=== PATIENT | male | born 1945 | race African-American/Black ===

== ENCOUNTER 2017-03-05 10:41 | Inpatient (IN) ==
[2017-03-05 12:26] LABS: Basophils # 0.1 K/mcL (0.0-0.2); Basophils % 0.9 %; Eosinophils # 0.1 K/mcL (0.0-0.6); Eosinophils % 0.9 %; Hematocrit 45.2 % (37.5-50.1); Immature Granulocytes % 0.4 % (0-4); Lymphocytes # 2.5 K/mcL (0.6-4.6); Mean Corpuscular HGB Conc 33.2 g/dL (31.6-35.5); Mean Corpuscular Hemoglobin 30.4 pg (28.0-33.3); Mean Corpuscular Volume 91.5 fL (83.0-100.0); Mean Platelet Volume 10.3 fL (9.4-12.4); Monocytes # 0.7 K/mcL (0.0-1.3); Neutrophils # 4.6 K/mcL (1.6-8.9); Platelet Count 271 K/mcL (140-400); Red Blood Count 4.94 M/mcL (4.19-5.50); Red Cell Distribution Width 13.6 % (11.5-14.5); Segmented Neutrophils % 57.8 %
--- NOTE | 2017-03-05 12:33 | Emergency Department Note ---
Disposition Clinical Impression: Elevated troponin, Hypertensive emergency, LVH (left ventricular hypertrophy) Disposition: Admitted As Inpatient Condition: Good Referrals: NONE,PCP [Non-Partnered Physician] - Forms: ED Satisfaction Letter General Adult HPI - General Chief complaint: ED Shortness of Breath/Dyspnea Stated complaint: LANI Time Seen by Provider: 03/05/17 12:17 Source: patient Limitations: no limitations Nursing Notes Reviewed: Yes Vital Signs Reviewed: Yes - History of Present Illness HPI Narrative: 71 y/o male who reports he has no medical problems aside from high blood pressure. Reports 2 weeks of shortness of breath but no cough. Says he was diagnosed with bronchitis a week ago, but has not improved. He was put on steroids, an antibiotic Keflex, an inhaler, and anti-hypertensive. He denies a fever. Denies sputum production. Denies cardiac history. Denies CP. No abdominal pain, no N/V/D/C. Radiation: non-radiation Pain Scale: 0 Improves with: nothing Worsens with: nothing Associated symptoms: Reports: denies other symptoms Treatments Prior to Arrival: none - Related Data Home Medications Medication Instructions Recorded Confirmed Advil 01/18/17 Previous Rx's Medication Instructions Recorded cephALEXin [Keflex] 500 mg PO QID #40 capsule 01/18/17 Albuterol Sulfate [Albuterol 2 puff IH QID #1 inhaler 02/04/17 Inhaler] amLODIPine [Norvasc] 2.5 mg PO DAILY #14 tablet 02/04/17 Allergies Allergy/AdvReac Type Severity Reaction Status Date / Time No Known Allergies Allergy Verified 03/05/17 11:08 All systems ED: reviewed and negative except as stated. Constitutional: Denies: fever Eyes: Denies: vision change ENT ED: Denies: throat pain Cardiovascular: Denies: chest pain Respiratory: Reports: dyspnea. Denies: cough, wheezes Gastrointestinal: Denies: abdominal pain, nausea, vomiting Musculoskeletal: Denies: back pain Integumentary: Denies: rash Neurological: Denies: headache Endocrine: Reports: fatigue Past Medical History - Past Medical History Medical history: Reports: no medical history Psychiatric history: Reports: no psych history - Social History Smoking Status: Current some day smoker Smokeless Tobacco Status: No Alcohol use: Reports: occasionally Drug use: Reports: none Physical Exam - General Limitations: no limitations General appearance: alert, in no apparent distress - Head Head exam: atraumatic - Eye Eye exam: Present: normal appearance, PERRL - ENT ENT exam: normal exam, normal oropharynx - Neck Neck exam: Present: normal inspection - Chest Chest inspection: Present: normal inspection - Respiratory Respiratory exam: Present: other (Right lower lobe crackles. No wheezing. No distress.) - Cardiovascular Cardiovascular exam: Present: regular rate, normal rhythm - Abdominal Exam Abdominal exam: Present: soft, Non-Tender - Extremities Exam Extremities exam: Present: normal inspection - Neurological Exam Neurological exam: Present: alert, oriented X3 - Psychiatric Psychiatric exam: Present: normal affect, normal mood - Skin Skin exam: Present: warm, dry Course Course Narrative: 71 y/o male with dyspnea. On physical exam he has significant RLL crackles. No cough. EKG shows significant LVH with ST depression in the lateral leads. No chest pain. Has a possible pneumonia in the RLL and did not resolve with keflex. Will give levaquin. Will treat HTN emergency (elevated troponin with BP 215 systolic) initially with labetalol and admit to the hospital. He does not have chest pain. After 20mg of labetalol his BP decreased from 210 systolic to 175 systolic. Will admit. Accepted by Dr Ring Vital Signs Temperature 97.3 F L 03/05/17 11:05 Pulse Rate 97 03/05/17 11:05 Respiratory Rate 18 03/05/17 11:05 Blood Pressure 184/121 03/05/17 11:05 O2 Sat by Pulse Oximetry 97 03/05/17 11:05 Temperature 97.3 F L 03/05/17 11:05 Pulse Rate 80 03/05/17 13:56 Respiratory Rate 16 03/05/17 13:56 Blood Pressure 166/111 03/05/17 13:56 O2 Sat by Pulse Oximetry 98 03/05/17 13:56 Oxygen Delivery Oxygen Delivery Room Air Medical Decision Making - Medical Records Medical records reviewed: Yes I reviewed the patient's medical records. - Lab Data Lab results reviewed: Yes I reviewed the patient's lab results. Result diagrams: 03/05/17 12:19 03/05/17 12:19 Lab Results 03/05/17 03/05/17 03/05/17 Range/Units 12:19 12:19 12:19 WBC 8.0 (4.3-11.1) K/mcL RBC 4.94 (4.19-5.50) M/mcL Hgb 15.0 (12.9-16.9) g/dL Hct 45.2 (37.5-50.1) % MCV 91.5 (83.0-100.0) fL MCH 30.4 (28.0-33.3) pg MCHC 33.2 (31.6-35.5) g/dL RDW 13.6 (11.5-14.5) % Plt Count 271 (140-400) K/mcL MPV 10.3 (9.4-12.4) fL Immature Gran % 0.4 (0-4) % Seg Neutrophils % 57.8 % Lymphocytes % 31.0 % Monocytes % 9.0 % Eosinophils % 0.9 % Basophils % 0.9 % Neutrophils # 4.6 (1.6-8.9) K/mcL Lymphocytes # 2.5 (0.6-4.6) K/mcL Monocytes # 0.7 (0.0-1.3) K/mcL Eosinophils # 0.1 (0.0-0.6) K/mcL Basophils # 0.1 (0.0-0.2) K/mcL Sodium 141 (136-145) mEq/L Potassium 4.0 (3.5-4.5) mEq/L Chloride 106 (98-109) mEq/L Carbon Dioxide 23 (19-29) mEq/L BUN 19 (8-26) mg/dL Creatinine 1.14 (0.72-1.25) mg/dL Est GFR ( Amer) > 60 (> 60) Est GFR (Non-Af Amer) > 60 (> 60) BUN/Creatinine Ratio 17 (6-26) Glucose 103 H (70-99) mg/dL Calculated Osmolality 295 (280-300) Calcium 10.3 (8.6-10.8) mg/dL Troponin I 0.08 H* (0-0.03) ng/mL B-Natriuretic Peptide (0-100) pg/mL 03/05/17 Range/Units 12:19 WBC (4.3-11.1) K/mcL RBC (4.19-5.50) M/mcL Hgb (12.9-16.9) g/dL Hct (37.5-50.1) % MCV (83.0-100.0) fL MCH (28.0-33.3) pg MCHC (31.6-35.5) g/dL RDW (11.5-14.5) % Plt Count (140-400) K/mcL MPV (9.4-12.4) fL Immature Gran % (0-4) % Seg Neutrophils % % Lymphocytes % % Monocytes % % Eosinophils % % Basophils % % Neutrophils # (1.6-8.9) K/mcL Lymphocytes # (0.6-4.6) K/mcL Monocytes # (0.0-1.3) K/mcL Eosinophils # (0.0-0.6) K/mcL Basophils # (0.0-0.2) K/mcL Sodium (136-145) mEq/L Potassium (3.5-4.5) mEq/L Chloride (98-109) mEq/L Carbon Dioxide (19-29) mEq/L BUN (8-26) mg/dL Creatinine (0.72-1.25) mg/dL Est GFR ( Amer) (> 60) Est GFR (Non-Af Amer) (> 60) BUN/Creatinine Ratio (6-26) Glucose (70-99) mg/dL Calculated Osmolality (280-300) Calcium (8.6-10.8) mg/dL Troponin I (0-0.03) ng/mL B-Natriuretic Peptide 3705 H (0-100) pg/mL - Radiology Data Radiology results reviewed: Yes I reviewed the patient's radiology results. - EKG Data EKG #1 EKG attestation: Yes I reviewed and interpreted this EKG. EKG shows normal: sinus rhythm Rate: normal Rhythm: NSR Mccausland/QRS: left axis deviation ST segment depression in: v4, v5, v6 Interpretation: other (LVH with ST depression in V4-V6.)
[2017-03-05 12:41] LABS: BUN/Creatinine Ratio 17 (6-26); Blood Urea Nitrogen 19 mg/dL (8-26); Calcium 10.3 mg/dL (8.6-10.8); Carbon Dioxide 23 mEq/L (19-29); Chloride 106 mEq/L (98-109); Glucose 103 mg/dL (70-99); Osmolality,Calculated 295 (280-300); Sodium 141 mEq/L (136-145); eGFR For African Americans > 60 (> 60); eGFR For Non-African Americans > 60 (> 60)
[2017-03-05] MEDS ORDERED: *HR* Labetalol 100 MG/20 ML MDV IVP ONE (13:01)
[2017-03-05] MEDS ORDERED: Aspirin 325 MG TABLET PO ONE (13:01)
[2017-03-05] MEDS ORDERED: *HR* Labetalol 20 MG/4 ML SYRINGE IVP ONE (13:04)
[2017-03-05] MEDS ORDERED: Levofloxacin 750 MG/150 ML 750 MG/150 ML BAG IVPB ONE (13:05)
--- NOTE | 2017-03-05 13:27 | Emergency Department Note ---
START Narrative - START START: I examined this patient and my medical decision-making was reviewed with the Resident Physician. I agree with the documented findings, disposition and treatment plan as described except to the extent set forth below. 71-year-old male presents emergency room for dyspnea and concerns for elevated blood pressure. Patient's blood pressure was running on the 200s systolic range. His EKG showed evidence of left ventricular hypertrophy. I suspect he has had uncontrolled blood pressure for a while. We will treat for his hypertension. Patient will likely need to be admitted.
[2017-03-05] MEDS ORDERED: Naloxone 0.4 MG/ML INJ IVP PRN (17:28)
[2017-03-05] MEDS ORDERED: Ondansetron 4 MG/2 ML VIAL IVP PRN (17:28)
[2017-03-05] MEDS ORDERED: Acetaminophen 325 MG TABLET PO PRN (17:28)
[2017-03-05] MEDS ORDERED: 0.9 % Sodium Chloride 1,000 ML IVC SCH (17:30)
[2017-03-05] MEDS ORDERED: Albuterol 2.5 MG/3 ML NEBULIZER IH PRN (17:32)
--- NOTE | 2017-03-05 17:49 | Internal Med History&Physical ---
Date of Encounter: 03/05/17 Time of Encounter: 17:46 Assessment and Plan (1) Hypertensive emergency Current visit: Yes Status: Acute He is only on Norvasc 2.5 mg at home therefore it is not clear why his blood pressure is so high. However it could be high due to the fact that he has underlying CHF. Other possibility in his differential is that he quit drinking 10 days ago and he could be going through withdrawal but he is not tachycardic. In any case I have added metoprolol tartrate 25 twice a day lisinopril 10. I will also initiate [employer] protocol IV hydralazine when necessary (2) NSTEMI (non-ST elevated myocardial infarction) Current visit: Yes Status: Acute No prior cardiac history neither any family history. 2 risk factors including smoking and hypertension. Troponin is slightly elevated and elevated and it could be due to non-STEMI type II. I have put him on aspirin and a start aspirin and beta blockers. Cardiology consulted. Echocardiogram ordered. Fasting lipid and hemoglobin A1c will also be checked for risk stratification (3) Pneumonia Current visit: Yes Status: Acute Blood cultures drawn in ER start IV Rocephin and Levaquin chest x-ray shows right lower lobe consolidation with small effusion Qualifiers: Pneumonia type: due to unspecified organism Laterality: right Lung location: lower lobe of lung Qualified Code(s): J18.1 - Lobar pneumonia, unspecified organism (4) COPD exacerbation Current visit: Yes Status: Acute *Nebulizers and oxygen (5) DVT prophylaxis Current visit: Yes Status: Acute Lovenox daily (6) Alcoholism Current visit: Yes Status: Acute The patient he has quit 10 days ago started thiamine and multivitamin and folic acid and [employer] protocol Internal Medicine - H&P: HPI Chief complaint: sob Admitted From: Home Plans for Post Hospital Care: Home History of present illness: Mr. Puente is a 71 year old male with past medical history significant for hypertension presented with 10 day history of aggressively worsening shortness of breath without any significant cough fever wheezing or phlegm. He was treated and resolution of bronchitis with Keflex and inhaler without any significant improvement. As he came to ER his blood pressure was noted quite high. His troponin is sports 0.08 though he denies any chest pain. He denies any other complaining bloating syncope headache and neck pain visual changes chest pain abdominal pain nausea vomiting diarrhea dysuria urgency frequency have actually medicated hematemesis melena or any other concerns otherwise. He used to drink one pack every 2 days and he smokes 1 pack every day but he quits 10 days ago. He seems quite dyspneic as I seem to lay down flat he could not do it very well and become quite short of breath. Past Med Surg Social Fam HX - Past Medical History Medical history: no medical history Psychiatric history: no psych history - Social History Smoking Status: Current some day smoker Smokeless Tobacco Status: No Alcohol use: occasionally Drug use: none Internal Medicine - H&P: Meds Ibuprofen [Advil] 200 - 800 mg PO Q6H PRN 01/18/17 [History] cephALEXin [Keflex] 500 mg PO QID #40 capsule 01/18/17 [Rx] Albuterol Sulfate [Albuterol Inhaler] 2 puff IH QID #1 inhaler 02/04/17 [Rx] amLODIPine [Norvasc] 2.5 mg PO DAILY #14 tablet 02/04/17 [Rx] 3 Allergy/AdvReac Type Severity Reaction Status Date / Time No Known Allergies Allergy Verified 03/05/17 11:08 All Systems PM: A 10-system review of systems was performed and is negative for pertinent findings except as documented above in the HPI. - Constitutional Constitutional: no chills, no fever(s), no night sweats - EENT Eyes: no change in vision, no discharge, no pain, no photophobia Ears: no ear discharge, no ear pain, no tinnitus Nose, mouth and throat: no dysphagia, no nasal discharge, no neck pain, no sore throat - Cardiovascular Cardiovascular ROS IM: dyspnea, orthopnea, no chest pain, no diaphoresis, no lightheadedness, no palpitations, no syncope - Respiratory Respiratory: no cough, no dyspnea, no wheezing, no excessive phlegm production - Gastrointestinal Gastrointestinal: no abdominal pain, no diarrhea, no hematemesis, no hematochezia, no melena, no nausea, no vomiting - Musculoskeletal Musculoskeletal ROS IM: no numbness, no tingling - Integumentary Integumentary IM: no rash, no unusual bruising - Neurological Neurological ROS: no confusion, no convulsions, no focal weakness, no numbness, no tingling, no tremor(s) - Hematologic/Lymphatic Hematologic/Lymphatic: no easy bruising - Constitutional Vitals: Temp Pulse Resp BP Pulse Ox 97.4 F L 91 18 163/116 96 03/05/17 16:16 03/05/17 16:27 03/05/17 16:16 03/05/17 16:16 03/05/17 16:16 General appearance: Present: mild distress, A&O X 3, pleasant, answers questions appropriately - Head Head exam: Present: atraumatic, normocephalic - Eye Eye exam: Present: PERRL, conjuntiva pink, sclera anicteric Pupils: Present: PERRL - Neck Neck exam general surgery: Present: supple, trachea midline. Absent: lymphadenopathy - Respiratory Respiratory exam: Present: decreased breath sounds. Absent: accessory muscle use, rales, rhonchi, wheezes - Cardiovascular Cardiovascular exam: Present: JVD, RRR, +S1, +S2. Absent: diastolic murmur, gallop, rubs, systolic murmur - GI/Abdominal GI/Abdominal exam: Present: normal bowel sounds, soft, no peritoneal signs. Absent: distended, tenderness - Extremities Exam Extremities exam: Present: warm, radial pulses palpable and symmetrical. Absent : calf tenderness, cyanotic, pedal edema - Neurological Exam Neurological exam: Present: CN II-XII intact, oriented X3, no focal deficits. Absent: pronater drift, facial droop, speech deficit - Skin Skin exam: Present: dry, intact Internal Med - H&P Results - Labs CBC & Chem 7: 03/05/17 12:19 03/05/17 12:19
[2017-03-05] MEDS ORDERED: Furosemide 40 MG/4 ML VIAL IVP STA (18:08)
[2017-03-05] MEDS ORDERED: *HR* LORazepam 2 MG/ML VIAL IVP PRN (18:24)
[2017-03-05] MEDS: Famotidine 20 MG/2 ML VIAL IVP SCH (18:25)
[2017-03-05] MEDS: Folic Acid 1 MG TABLET PO SCH (18:57)
[2017-03-05] MEDS: Thiamine (B-1) 100 MG TABLET PO SCH (18:58)
[2017-03-06] MEDS ORDERED: methylPREDNISolone 125 MG/2 ML VIAL IVP SCH
[2017-03-06] MEDS: *HR* Enoxaparin 40 MG/0.4 ML SYRINGE SQ SCH (05:57)
[2017-03-06] MEDS: Famotidine 20 MG/2 ML VIAL IVP SCH ×2 (05:57→18:22)
[2017-03-06] MEDS: Ipratropium/Albuterol Neb 3 ML IH SCH ×6 (06:29→22:30)
[2017-03-06 06:52] LABS: Basophils # 0.1 K/mcL (0.0-0.2); Basophils % 0.8 %; Eosinophils % 0.5 %; Hematocrit 38.2 % (37.5-50.1); Immature Granulocytes % 0.4 % (0-4); Immature Platelets 3.3 % (1.1-6.1); Lymphocytes % 24.7 %; Mean Corpuscular Hemoglobin 30.5 pg (28.0-33.3); Mean Corpuscular Volume 89.7 fL (83.0-100.0); Mean Platelet Volume 10.6 fL (9.4-12.4); Monocytes # 0.8 K/mcL (0.0-1.3); Platelet Count 229 K/mcL (140-400); Red Blood Count 4.26 M/mcL (4.19-5.50); Red Cell Distribution Width 13.5 % (11.5-14.5); Segmented Neutrophils % 63.6 %
[2017-03-06 07:07] LABS: Alanine Aminotransferase 24 Units/L (0-55); Albumin 3.2 g/dL (3.5-5.0); Albumin/Globulin Ratio 0.8 (1.1-2.2); Alkaline Phosphatase 82 Units/L (38-126); Aspartate Amino Transferase 25 Units/L (5-34); BUN/Creatinine Ratio 20 (6-26); Bilirubin,Total 0.7 mg/dL (0.2-1.2); Blood Urea Nitrogen 23 mg/dL (8-26); Calcium 9.6 mg/dL (8.6-10.8); Carbon Dioxide 22 mEq/L (19-29); Chloride 108 mEq/L (98-109); Chol/HDL Ratio 3.8 (0-4.9); Cholesterol 141 mg/dL (< 200); Globulin 3.8 g/dL (2.4-3.5); Glucose 81 mg/dL (70-99); HDL Cholesterol 37 mg/dL (40-59); LDL Cholesterol,Calculated 92 mg/dL (0-99); Osmolality,Calculated 297 (280-300); Potassium 3.7 mEq/L (3.5-4.5); Sodium 142 mEq/L (136-145); Triglycerides 61 mg/dL (< 150); eGFR For African Americans > 60 (> 60); eGFR For Non-African Americans > 60 (> 60)
[2017-03-06 07:30] LABS: Hemoglobin A1C 5.2 %
[2017-03-06] MEDS: Aspirin 325 MG TABLET PO SCH (08:16)
[2017-03-06] MEDS: Thiamine (B-1) 100 MG TABLET PO SCH (08:16)
[2017-03-06] MEDS: Furosemide 40 MG/4 ML VIAL IVP SCH ×2 (08:16→16:49)
[2017-03-06] MEDS: Folic Acid 1 MG TABLET PO SCH (08:16)
[2017-03-06] MEDS: Levofloxacin 750 MG/150 ML 750 MG/150 ML BAG IVPB SCH (08:17)
--- NOTE | 2017-03-06 09:51 | Internal Med Progress Note ---
Date of Encounter: 03/06/17 Time of Encounter: 09:47 - Assessment and plan (1) Hypertensive emergency Current Visit: Yes Status: Acute (2) NSTEMI (non-ST elevated myocardial infarction) Current Visit: Yes Status: Acute (3) Pneumonia Current Visit: Yes Status: Acute Qualifiers: Pneumonia type: due to unspecified organism Laterality: right Lung location: lower lobe of lung Qualified Code(s): J18.1 - Lobar pneumonia, unspecified organism (4) COPD exacerbation Current Visit: Yes Status: Acute (5) DVT prophylaxis Current Visit: Yes Status: Acute (6) Alcoholism Current Visit: Yes Status: Acute - Subjective Interval history: Mr. Puente is a 71 year old male with past medical history significant for hypertension presented with 10 day history of aggressively worsening shortness of breath without any significant cough fever wheezing or phlegm. He was treated OP for bronchitis with Keflex and inhaler without any significant improvement. As he came to ER his blood pressure was noted quite high. His troponin is sports 0.08 though he denies any chest pain. He denies any other complaining bloating syncope headache and neck pain visual changes chest pain abdominal pain nausea vomiting diarrhea dysuria urgency frequency have actually medicated hematemesis melena or any other concerns otherwise. He used to drink one pack every 2 days and he smokes 1 pack every day but he quits 10 days ago. He seems quite dyspneic as I seem to lay down flat he could not do it very well and become quite short of breath. Echocardiogram showed LV ejection fraction 25% severe MR global dysfunction and moderate pulmonary hypertension. Considering history of alcoholism Will maximize on Anibal inhibitors and try to keep afterload low and will add low-dose Lasix. Waiting cardiology for further workup plan. - Constitutional Vitals: Temp Pulse Resp BP Pulse Ox 98.1 F 70 20 151/91 94 03/06/17 07:10 03/06/17 08:00 03/06/17 07:10 03/06/17 04:35 03/06/17 07:10 General appearance: Present: mild distress, A&O X 3, pleasant, answers questions appropriately - Head Head exam: Present: atraumatic, normocephalic - Eye Eye exam: Present: PERRL, conjuntiva pink, sclera anicteric Pupils: Present: PERRL - Neck Neck exam general surgery: Present: supple, trachea midline. Absent: lymphadenopathy - Respiratory Respiratory exam: Present: CTAB. Absent: accessory muscle use, rales, rhonchi, wheezes - Cardiovascular Cardiovascular exam: Present: RRR, +S1, +S2. Absent: diastolic murmur, gallop, rubs, systolic murmur - GI/Abdominal GI/Abdominal exam: Present: normal bowel sounds, soft, no peritoneal signs. Absent: distended, tenderness - Extremities Exam Extremities exam: Present: warm, radial pulses palpable and symmetrical. Absent : calf tenderness, cyanotic, pedal edema - Neurological Exam Neurological exam: Present: CN II-XII intact, oriented X3, no focal deficits. Absent: pronater drift, facial droop, speech deficit - Skin Skin exam: Present: dry, intact Internal Medicine: Result - Labs CBC & Chem 7: 03/06/17 06:37 03/06/17 06:37 Labs: Short CBC 03/06/17 Range/Units 06:37 WBC 7.9 (4.3-11.1) K/mcL Hgb 13.0 D (12.9-16.9) g/dL Hct 38.2 (37.5-50.1) % Plt Count 229 (140-400) K/mcL Neutrophils # 5.0 (1.6-8.9) K/mcL BMP 03/06/17 06:37 Sodium 142 Potassium 3.7 Chloride 108 Carbon Dioxide 22 BUN 23 Creatinine 1.17 Glucose 81 Calcium 9.6 Liver Function 03/06/17 Range/Units 06:37 Total Bilirubin 0.7 (0.2-1.2) mg/dL AST 25 (5-34) Units/L ALT 24 (0-55) Units/L Alkaline Phosphatase 82 (38-126) Units/L Albumin 3.2 L (3.5-5.0) g/dL - VTE Documentation of Mechanical Device: Graduated compression elastic hosiery Consult Discharge Plan - Plan Referrals: Claude Lott MD [Primary Care Provider] - 03/20/17 10:00 am
--- NOTE | 2017-03-06 13:25 | Cardiology Consult Note ---
Date of Encounter: 03/06/17 Time of Encounter: 14:21 Assessment and Plan (1) Elevated troponin Current Visit: Yes Status: Acute Mild troponin elevation in the setting of HTN and CHF. Likely demand ischemia. Troponin 0.08 x2. EKG shows SR with possible LVH. Denies chest pain. B/p improving. Check TTE. (2) Hypertensive emergency Current Visit: Yes Status: Acute B/p 184/120. Improved to 151/91 with addition of lisinopril and bb. Titrate as needed. Low sodium diet. (3) CHF (congestive heart failure) Current Visit: Yes Status: Acute Check TTE. No previous hystory. Likely hypertensive heart disease. BNP 3700. CXR shows mild pulmonary edema, Agree with IV lasix. Reports he is feeling better. Low sodium diet. Qualifiers: Congestive heart failure type: unspecified congestive heart failure type Congestive heart failure chronicity: acute Qualified Code(s): I50.9 - Heart failure, unspecified Discussion w patient/family: The assessment and plan as outlined above was discussed with the patient and/or family members who expressed understanding and agreement. All questions were answered. Thank you for involving us in the care of your patient. Please call with any questions. History of Present Illness Consult date: 03/06/17 Requesting physician: Chloé Person Consult reason: Elevated troponin, CHF Chief complaint: SOB and cough History of present illness: Mr. Puente is a 71 year old male with a history of hypertension, tobacco and ETOH abuse who presented with increasing SOB and moist non-productive cough over the past three weeks. He also admits to orthopnea. He was found to have hypertensive urgency. B/p 184/120. CXR showed mild pulmonary edema. BNP 3700. He denies previous cardiac history. Reports stopping smoking and drinking ETOH four weeks ago. Past Med Surg Social Fam HX - Past Medical History Medical history: hypertension Psychiatric history: no psych history - Social History Smoking Status: Current some day smoker Smokeless Tobacco Status: No Alcohol use: occasionally Drug use: none Medications and Allergies Ibuprofen [Advil] 200 - 800 mg PO Q6H PRN 01/18/17 [History] cephALEXin [Keflex] 500 mg PO QID #40 capsule 01/18/17 [Rx] Albuterol Sulfate [Albuterol Inhaler] 2 puff IH QID #1 inhaler 02/04/17 [Rx] amLODIPine [Norvasc] 2.5 mg PO DAILY #14 tablet 02/04/17 [Rx] 3 Allergy/AdvReac Type Severity Reaction Status Date / Time No Known Allergies Allergy Verified 03/05/17 11:08 All Systems Review: A 10-system review of systems was performed and is negative for pertinent findings except as documented above in the HPI. Physical Examination Vital Signs, Last 4 Hours Temp Pulse Resp BP Pulse Ox 03/06/17 11:43 84 03/06/17 10:58 97.5 F L 74 22 152/94 95 General: Conversant, No Apparent Distress HEENT: Atraumatic, Normocephaly, Mucus Membranes Moist Neck: No JVD, Normal carotid pulses Cardiac: Reg Rate and Rhythm, Normal S1 and S2, No Murmur Lungs: Normal Breath Sounds, No Wheeze, Rales, Rhonchi, Other (diminished bases , moist cough) Neuro: Alert and responsive, No focal deficits noted Abdomen: Soft, Non-Tender Skin: No rashes noted on visualized skin Musculoskeletal: No Chest Wall Tenderness Extremities: No Clubbing, No Cyanosis, No Edema, Normal Pulses Results 03/06/17 06:37 03/06/17 06:37 Lab Results 03/06/17 03/06/17 03/06/17 06:37 06:37 11:09 WBC 7.9 Hgb 13.0 D Hct 38.2 Plt Count 229 Sodium 142 Potassium 3.7 Chloride 108 Carbon Dioxide 22 BUN 23 Creatinine 1.17 Glucose 81 Calcium 9.6 Total Bilirubin 0.7 AST 25 ALT 24 Alkaline Phosphatase 82 Troponin I 0.09 H* - EKG Interpretation EKG results cardiology: personally reviewed (sinus tachycardia, possible LVH) Consult Discharge Plan - Plan Referrals: Claude Lott MD [Primary Care Provider] - 03/20/17 10:00 am
[2017-03-07] MEDS: Ipratropium/Albuterol Neb 3 ML IH SCH ×4 (04:34→22:41)
[2017-03-07 04:59] LABS: Basophils # 0.1 K/mcL (0.0-0.2); Basophils % 0.6 %; Eosinophils # 0.1 K/mcL (0.0-0.6); Hematocrit 36.8 % (37.5-50.1); Hemoglobin 12.8 g/dL (12.9-16.9); Immature Granulocytes % 0.5 % (0-4); Immature Platelets 3.5 % (1.1-6.1); Lymphocytes # 2.4 K/mcL (0.6-4.6); Lymphocytes % 28.6 %; Mean Corpuscular HGB Conc 34.8 g/dL (31.6-35.5); Mean Corpuscular Hemoglobin 31.4 pg (28.0-33.3); Mean Corpuscular Volume 90.2 fL (83.0-100.0); Mean Platelet Volume 10.3 fL (9.4-12.4); Monocytes % 12.2 %; Neutrophils # 4.7 K/mcL (1.6-8.9); Platelet Count 222 K/mcL (140-400); Red Blood Count 4.08 M/mcL (4.19-5.50); Red Cell Distribution Width 13.5 % (11.5-14.5); Segmented Neutrophils % 57.1 %
[2017-03-07 06:12] LABS: Bilirubin,Total 0.4 mg/dL (0.2-1.2); Calcium 8.9 mg/dL (8.6-10.8); Potassium 3.4 mEq/L (3.5-4.5); Total Protein 6.6 g/dL (6.0-8.3)
[2017-03-07] MEDS: *HR* Enoxaparin 40 MG/0.4 ML SYRINGE SQ SCH (07:06)
[2017-03-07] MEDS: Famotidine 20 MG/2 ML VIAL IVP SCH ×2 (07:06→17:48)
[2017-03-07 07:32] LABS: Albumin 3.5 g/dL (3.5-5.0); Albumin/Globulin Ratio 1.1 (1.1-2.2); Globulin 3.1 g/dL (2.4-3.5)
[2017-03-07] MEDS: Levofloxacin 750 MG/150 ML 750 MG/150 ML BAG IVPB SCH (08:50)
[2017-03-07] MEDS: Aspirin 325 MG TABLET PO SCH (08:51)
[2017-03-07] MEDS: Folic Acid 1 MG TABLET PO SCH (08:51)
[2017-03-07] MEDS: Thiamine (B-1) 100 MG TABLET PO SCH (08:51)
[2017-03-07] MEDS: Furosemide 40 MG/4 ML VIAL IVP SCH (08:51)
--- NOTE | 2017-03-07 09:33 | Cardiology Progress Note ---
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 No prior TTE for comparison BNP 3700. CXR shows mild pulmonary edema. TTE: LVEF 25%, severe global left ventricular systolic dysfunction, severe left ventricular diastolic dysfunction, mildly dilated right ventricle with mild hypokinesis, severely dilated left atrium, moderate to severely dilated right atrium, severe, central mitral regurgitation, mild tricuspid regurgitation, mild to moderate pulmonary hypertension. Recommend [facility] to evaluate for ischemic etiology, however patient elects to trial medical therapy. Will re-evaluate in AM. Appears euvolemic upon exam. Renal function worsening today, patient is euvolemic upon exam, will change lasix to po. Potassium replaced. Lopressor changed to coreg given systolic CHF; continue ACEi. Na/fluid restriction diet. +470 mL fluid balance. Qualifiers: Congestive heart failure type: combined Congestive heart failure chronicity : acute Qualified Code(s): I50.41 - Acute combined systolic (congestive) and diastolic (congestive) heart failure (2) Elevated troponin Current Visit: Yes Status: Acute Mild troponin elevation in the setting of HTN and CHF. Likely demand ischemia. Troponin 0.08 x2. EKG shows SR with possible LVH. Patient denies chest pain. TTE: LVEF 25%, severe global left ventricular systolic dysfunction, severe left ventricular diastolic dysfunction, mildly dilated right ventricle with mild hypokinesis, severely dilated left atrium, moderate to severely dilated right atrium, severe, central mitral regurgitation, mild tricuspid regurgitation, mild to moderate pulmonary hypertension. Recommend [facility] due to cardiomyopathy; however, at this time patient wants to trial medical therapy due to improving symptoms. Will re-evaluate in AM. Continue betablocker and asa. Add statin. (3) Hypertensive emergency Current Visit: Yes Status: Acute Control improved, continue ACEi. Lopressor changed to coreg, continue to increase BB as needed. Discussion w patient/family: The assessment and plan as outlined above was discussed with the patient and/or family members who expressed understanding and agreement. All questions were answered. Thank you for involving us in the care of your patient. Please call with any questions. The patient was discussed and reviewed with Dr. Floyd Dickens; changes to be made accordingly. Subjective Principal diagnosis: Hypertensive urgency Interval history: Seen and examined. Patient reports symptoms--shortness of breath has significantly improved this AM. Discussed findings of TTE with patient at length. Objective Vital Signs, Last 4 Hours Temp Pulse Resp BP Pulse Ox 03/07/17 07:50 70 03/07/17 07:19 97.9 F 70 18 156/93 96 General: Conversant, No Apparent Distress HEENT: Atraumatic, Normocephaly, Mucus Membranes Moist Cardiac: Reg Rate and Rhythm, Normal S1 and S2 Lungs: Other (bibasilar diminished) Neuro: Alert and responsive Abdomen: Soft Skin: No rashes noted on visualized skin Musculoskeletal: No Chest Wall Tenderness Extremities: No Edema, Normal Pulses Results 03/07/17 04:47 03/07/17 04:47 Lab Results 03/06/17 03/06/17 03/07/17 11:09 16:53 04:47 WBC 8.2 Hgb 12.8 L Hct 36.8 L Plt Count 222 Sodium Potassium Chloride Carbon Dioxide BUN Creatinine Glucose Calcium Total Bilirubin AST ALT Alkaline Phosphatase Troponin I 0.09 H* 0.09 H* 03/07/17 04:47 WBC Hgb Hct Plt Count Sodium 140 Potassium 3.4 L Chloride 107 Carbon Dioxide 23 BUN 26 Creatinine 1.52 H Glucose 82 Calcium 8.9 Total Bilirubin 0.4 AST 30 ALT 36 Alkaline Phosphatase 75 Troponin I Active Medications Acetaminophen (Tylenol) 650 mg PO Q6HR PRN PRN Reason: Mild Pain (1-3) Stop: 09/04/17 17:29 Albuterol Sulfate (Proventil Neb) 2.5 mg IH Q2H PRN; Protocol PRN Reason: Shortness Of Breath/Wheezing Stop: 09/04/17 17:33 Albuterol/Ipratropium (Duoneb) 3 ml IH QIDR [facility] PRN Reason: Protocol Stop: 09/04/17 17:46 Last Admin: 03/07/17 04:34 Dose: 3 ml Aspirin (Aspirin) 325 mg PO DAILY [facility] Stop: 09/05/17 09:01 Last Admin: 03/07/17 08:51 Dose: 325 mg Carvedilol (Coreg) 6.25 mg PO BIDWM [facility] PRN Reason: Protocol Stop: 09/06/17 08:01 Last Admin: 03/07/17 08:51 Dose: 6.25 mg Docusate Sodium (Colace) 100 mg PO BID PRN PRN Reason: Constipation Stop: 09/04/17 17:29 Enoxaparin Sodium (Lovenox) 40 mg SQ 0600 [facility] PRN Reason: Protocol Stop: 09/05/17 06:01 Last Admin: 03/07/17 07:06 Dose: 40 mg Famotidine (Pepcid) 20 mg IVP Q12HR [facility] Stop: 09/04/17 18:01 Last Admin: 03/07/17 07:06 Dose: 20 mg Folic Acid (Folic Acid) 1 mg PO DAILY [facility] Stop: 09/04/17 18:31 Last Admin: 03/07/17 08:51 Dose: 1 mg Furosemide (Lasix) 40 mg PO DAILY [facility] Stop: 09/07/17 09:01 Hydralazine HCl (Hydralazine) 10 mg IVP Q6HR PRN PRN Reason: Hypertension Stop: 09/04/17 17:34 Last Admin: 03/05/17 23:40 Dose: 10 mg Ceftriaxone Sodium 1,000 mg/ (Dextrose) 100 mls @ 200 mls/hr IVPB Q24H [facility] Stop: 03/15/17 18:01 Last Admin: 03/06/17 18:21 Dose: 200 mls/hr Levofloxacin/Dextrose (Levaquin Premix 750mg/150 Ml) 750 mg in 150 mls @ 100 mls/hr IVPB DAILY [facility] PRN Reason: Protocol Stop: 09/05/17 09:01 Last Admin: 03/07/17 08:50 Dose: 100 mls/hr Lisinopril (Zestril) 10 mg PO DAILY [facility] PRN Reason: Protocol Stop: 09/04/17 18:31 Last Admin: 03/07/17 08:51 Dose: 10 mg Lorazepam (Ativan) 1 mg IVP Q1H PRN PRN Reason: Alcohol Withdrawal Stop: 09/04/17 18:25 Naloxone HCl (Narcan) 0.4 mg IVP Q2MIN PRN PRN Reason: Opioid Reversal Stop: 09/04/17 17:29 Ondansetron HCl (Zofran) 4 mg IVP Q8HR PRN PRN Reason: Nausea And Vomiting Stop: 09/04/17 17:29 Potassium Chloride (Potassium Chloride) 40 meq PO ONCE ONE Stop: 03/07/17 09:44 Thiamine HCl (Vitamin B-1) 100 mg PO DAILY [facility] Stop: 09/04/17 18:31 Last Admin: 03/07/17 08:51 Dose: 100 mg - Imaging and Cardiology Echo: report reviewed Other Results: 12 hour tele: avg HR=72 SR. No significant event noted. - EKG Interpretation EKG results cardiology: personally reviewed - VTE Documentation of Mechanical Device: Graduated compression elastic hosiery Consult Discharge Plan - Plan Referrals: Claude Lott MD [Primary Care Provider] - 03/20/17 10:00 am
--- NOTE | 2017-03-07 10:59 | Internal Med Progress Note ---
Date of Encounter: 03/07/17 Time of Encounter: 10:56 - Assessment and plan (1) Hypertensive emergency Current Visit: Yes Status: Acute (2) NSTEMI (non-ST elevated myocardial infarction) Current Visit: Yes Status: Acute (3) Pneumonia Current Visit: Yes Status: Acute Qualifiers: Pneumonia type: due to unspecified organism Laterality: right Lung location: lower lobe of lung Qualified Code(s): J18.1 - Lobar pneumonia, unspecified organism (4) COPD exacerbation Current Visit: Yes Status: Acute (5) DVT prophylaxis Current Visit: Yes Status: Acute (6) Alcoholism Current Visit: Yes Status: Acute (7) STEVEN (acute kidney injury) Current Visit: Yes Status: Acute - Subjective Interval history: Mr. Puente is a 71 year old male with past medical history significant for hypertension presented with 10 day history of aggressively worsening shortness of breath without any significant cough fever wheezing or phlegm. He was treated OP for bronchitis with Keflex and inhaler without any significant improvement. As he came to ER his blood pressure was noted quite high. His troponin is sports 0.08 though he denies any chest pain. He denies any other complaining bloating syncope headache and neck pain visual changes chest pain abdominal pain nausea vomiting diarrhea dysuria urgency frequency have actually medicated hematemesis melena or any other concerns otherwise. He used to drink one pack every 2 days and he smokes 1 pack every day but he quits 10 days ago. He seems quite dyspneic as I seem to lay down flat he could not do it very well and become quite short of breath. Echocardiogram showed LV ejection fraction 25% severe MR global dysfunction and moderate pulmonary hypertension. Considering history of alcoholism Will maximize on Anibal inhibitors and try to keep afterload low and will add low-dose Lasix. Waiting cardiology for further workup plan. 03/07 cardiology input noted. Price refusing LHC. Blood pressures are still uncontrolled. We will substitute Coreg by Lopressor. We will watch creatinine closely and if it worsened will hold ANIBAL inhibitor for a few days. Agree with changing IV Lasix to by mouth Lasix at a lower dose. Patient has developed STEVEN due to overdiuresis and renal function will be followed. Continue IV Levaquin and Rocephin for now but if creatinine worsens might have to readjust Levaquin or DC'd. Add oral thiamine and multivitamin folic acid. - Constitutional Vitals: Temp Pulse Resp BP Pulse Ox 97.9 F 70 18 156/93 96 03/07/17 07:19 03/07/17 07:50 03/07/17 07:19 03/07/17 07:19 03/07/17 07:19 General appearance: Present: mild distress, A&O X 3, pleasant, answers questions appropriately - Head Head exam: Present: atraumatic, normocephalic - Eye Eye exam: Present: PERRL, conjuntiva pink, sclera anicteric Pupils: Present: PERRL - Neck Neck exam general surgery: Present: supple, trachea midline. Absent: lymphadenopathy - Respiratory Respiratory exam: Present: CTAB. Absent: accessory muscle use, rales, rhonchi, wheezes - Cardiovascular Cardiovascular exam: Present: RRR, +S1, +S2. Absent: diastolic murmur, gallop, rubs, systolic murmur - GI/Abdominal GI/Abdominal exam: Present: normal bowel sounds, soft, no peritoneal signs. Absent: distended, tenderness - Extremities Exam Extremities exam: Present: warm, radial pulses palpable and symmetrical. Absent : calf tenderness, cyanotic, pedal edema - Neurological Exam Neurological exam: Present: CN II-XII intact, oriented X3, no focal deficits. Absent: pronater drift, facial droop, speech deficit - Skin Skin exam: Present: dry, intact Internal Medicine: Result - Labs CBC & Chem 7: 03/07/17 04:47 03/07/17 04:47 Labs: Short CBC 03/07/17 Range/Units 04:47 WBC 8.2 (4.3-11.1) K/mcL Hgb 12.8 L (12.9-16.9) g/dL Hct 36.8 L (37.5-50.1) % Plt Count 222 (140-400) K/mcL Neutrophils # 4.7 (1.6-8.9) K/mcL BMP 03/07/17 04:47 Sodium 140 Potassium 3.4 L Chloride 107 Carbon Dioxide 23 BUN 26 Creatinine 1.52 H Glucose 82 Calcium 8.9 Cardiac Enzymes 03/06/17 03/06/17 Range/Units 11:09 16:53 Troponin I 0.09 H* 0.09 H* (0-0.03) ng/mL Liver Function 03/07/17 Range/Units 04:47 Total Bilirubin 0.4 (0.2-1.2) mg/dL AST 30 (5-34) Units/L ALT 36 (0-55) Units/L Alkaline Phosphatase 75 (38-126) Units/L Albumin 3.5 (3.5-5.0) g/dL - VTE Documentation of Mechanical Device: Graduated compression elastic hosiery Consult Discharge Plan - Plan Referrals: Claude Lott MD [Primary Care Provider] - 03/20/17 10:00 am
[2017-03-08] MEDS: Ipratropium/Albuterol Neb 3 ML IH SCH ×2 (04:26→10:57)
[2017-03-08] MEDS: *HR* Enoxaparin 40 MG/0.4 ML SYRINGE SQ SCH (06:03)
[2017-03-08] MEDS: Famotidine 20 MG/2 ML VIAL IVP SCH (06:03)
[2017-03-08] MEDS: Folic Acid 1 MG TABLET PO SCH (07:32)
[2017-03-08] MEDS: Thiamine (B-1) 100 MG TABLET PO SCH (07:32)
[2017-03-08] MEDS: Aspirin 325 MG TABLET PO SCH (07:32)
[2017-03-08 08:15] LABS: Basophils # 0.1 K/mcL (0.0-0.2); Basophils % 0.6 %; Eosinophils # 0.1 K/mcL (0.0-0.6); Eosinophils % 1.2 %; Hematocrit 38.8 % (37.5-50.1); Hemoglobin 12.8 g/dL (12.9-16.9); Immature Granulocytes % 0.4 % (0-4); Lymphocytes # 2.3 K/mcL (0.6-4.6); Lymphocytes % 27.8 %; Mean Corpuscular Hemoglobin 30.8 pg (28.0-33.3); Mean Corpuscular Volume 93.3 fL (83.0-100.0); Mean Platelet Volume 11.1 fL (9.4-12.4); Monocytes % 11.4 %; Neutrophils # 4.9 K/mcL (1.6-8.9); Platelet Count 238 K/mcL (140-400); Red Blood Count 4.16 M/mcL (4.19-5.50); Red Cell Distribution Width 13.7 % (11.5-14.5); Segmented Neutrophils % 58.6 %
[2017-03-08] MEDS ORDERED: Furosemide 40 MG TABLET PO SCH (09:00)
--- NOTE | 2017-03-08 10:06 | Cardiology Progress Note ---
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 No prior TTE for comparison BNP 3700. CXR shows mild pulmonary edema. TTE: LVEF 25%, severe global left ventricular systolic dysfunction, severe left ventricular diastolic dysfunction, mildly dilated right ventricle with mild hypokinesis, severely dilated left atrium, moderate to severely dilated right atrium, severe, central mitral regurgitation, mild tricuspid regurgitation, mild to moderate pulmonary hypertension. Recommend [facility] to evaluate for ischemic etiology, however patient elects to trial medical therapy; he is adamant that he goes home today. Appears euvolemic upon exam. Renal function worsening today, patient is euvolemic upon exam, will change lasix to po. Potassium replaced. Given systolic CHF recommend Coreg, however betablocker was again changed to lopressor by primary service; continue ACEi. Na/fluid restriction diet. +470 mL fluid balance. Cardiology will sign-off, will coordinate appt in the outpatient setting. If patient changes mind and will stay overnight, please re-consult. Qualifiers: Congestive heart failure type: combined Congestive heart failure chronicity : acute Qualified Code(s): I50.41 - Acute combined systolic (congestive) and diastolic (congestive) heart failure (2) Elevated troponin Current Visit: Yes Status: Acute Mild troponin elevation in the setting of HTN and CHF. Likely demand ischemia. Troponin 0.08 x2. EKG shows SR with possible LVH. Patient denies chest pain. TTE: LVEF 25%, severe global left ventricular systolic dysfunction, severe left ventricular diastolic dysfunction, mildly dilated right ventricle with mild hypokinesis, severely dilated left atrium, moderate to severely dilated right atrium, severe, central mitral regurgitation, mild tricuspid regurgitation, mild to moderate pulmonary hypertension. Recommend [facility] due to cardiomyopathy; however, at this time patient wants to trial medical therapy due to improving symptoms. 03/08/17--patient continues to decline LHC at this time, will follow-up in the outpatient setting. Continue betablocker, asa, and statin. (3) Hypertensive emergency Current Visit: Yes Status: Acute Control improved, continue ACEi. Recommend coreg and uptitrate to control BP. Betablocker changed backed to lopressor by primary service. Will defer further mgmt. to primary service. Discussion w patient/family: The assessment and plan as outlined above was discussed with the patient and/or family members who expressed understanding and agreement. All questions were answered. Thank you for involving us in the care of your patient. Please call with any questions. The patient was discussed and reviewed with Dr. Floyd Dickens; changes to be made accordingly. Subjective Principal diagnosis: Hypertensive urgency Interval history: Seen and examined. Patient reports symptoms--shortness of breath has significantly improved this AM. Discussed findings of TTE with patient at length. Patient is adamant that he is going home today. Objective Vital Signs, Last 4 Hours Temp Pulse Resp BP Pulse Ox 03/08/17 07:30 97.7 F 89 20 160/93 95 General: Conversant, No Apparent Distress HEENT: Atraumatic, Normocephaly, Mucus Membranes Moist Cardiac: Reg Rate and Rhythm, Normal S1 and S2 Lungs: Other (Decreased throughout) Neuro: Alert and responsive Abdomen: Soft Skin: No rashes noted on visualized skin Musculoskeletal: No Chest Wall Tenderness Extremities: No Edema, Normal Pulses Results 03/08/17 07:26 03/07/17 04:47 Lab Results 03/08/17 07:26 WBC 8.3 Hgb 12.8 L Hct 38.8 Plt Count 238 Active Medications Acetaminophen (Tylenol) 650 mg PO Q6HR PRN PRN Reason: Mild Pain (1-3) Stop: 09/04/17 17:29 Albuterol Sulfate (Proventil Neb) 2.5 mg IH Q2H PRN; Protocol PRN Reason: Shortness Of Breath/Wheezing Stop: 09/04/17 17:33 Albuterol/Ipratropium (Duoneb) 3 ml IH QIDR [facility] PRN Reason: Protocol Stop: 09/04/17 17:46 Last Admin: 03/08/17 04:26 Dose: 3 ml Aspirin (Aspirin) 325 mg PO DAILY [facility] Stop: 09/05/17 09:01 Last Admin: 03/08/17 07:32 Dose: 325 mg Atorvastatin Calcium (Lipitor) 40 mg PO HS [facility] Stop: 09/06/17 21:01 Last Admin: 03/07/17 21:24 Dose: 40 mg Docusate Sodium (Colace) 100 mg PO BID PRN PRN Reason: Constipation Stop: 09/04/17 17:29 Enoxaparin Sodium (Lovenox) 40 mg SQ 0600 [facility] PRN Reason: Protocol Stop: 09/05/17 06:01 Last Admin: 03/08/17 06:03 Dose: 40 mg Famotidine (Pepcid) 20 mg IVP Q12HR [facility] Stop: 09/04/17 18:01 Last Admin: 03/08/17 06:03 Dose: 20 mg Folic Acid (Folic Acid) 1 mg PO DAILY [facility] Stop: 09/04/17 18:31 Last Admin: 03/08/17 07:32 Dose: 1 mg Furosemide (Lasix) 40 mg PO DAILY [facility] Stop: 09/07/17 09:01 Last Admin: 03/08/17 07:32 Dose: 40 mg Hydralazine HCl (Hydralazine) 10 mg IVP Q6HR PRN PRN Reason: Hypertension Stop: 09/04/17 17:34 Last Admin: 03/05/17 23:40 Dose: 10 mg Ceftriaxone Sodium 1,000 mg/ (Dextrose) 100 mls @ 200 mls/hr IVPB Q24H [facility] Stop: 03/15/17 18:01 Last Admin: 03/07/17 17:48 Dose: 200 mls/hr Levofloxacin/Dextrose (Levaquin Premix 750mg/150 Ml) 750 mg in 150 mls @ 100 mls/hr IVPB Q48H [facility] PRN Reason: Protocol Stop: 09/08/17 09:01 Lisinopril (Zestril) 10 mg PO DAILY [facility] PRN Reason: Protocol Stop: 09/04/17 18:31 Last Admin: 03/08/17 07:32 Dose: 10 mg Lorazepam (Ativan) 1 mg IVP Q1H PRN PRN Reason: Alcohol Withdrawal Stop: 09/04/17 18:25 Metoprolol Tartrate (Lopressor) 25 mg PO BID [facility] Stop: 09/06/17 11:01 Last Admin: 03/08/17 07:32 Dose: 25 mg Naloxone HCl (Narcan) 0.4 mg IVP Q2MIN PRN PRN Reason: Opioid Reversal Stop: 09/04/17 17:29 Ondansetron HCl (Zofran) 4 mg IVP Q8HR PRN PRN Reason: Nausea And Vomiting Stop: 09/04/17 17:29 Thiamine HCl (Vitamin B-1) 100 mg PO DAILY [facility] Stop: 09/04/17 18:31 Last Admin: 03/08/17 07:32 Dose: 100 mg - Imaging and Cardiology Echo: report reviewed Other Results: 12 hour tele: avg HR=75 SR. No significant event noted. - EKG Interpretation EKG results cardiology: personally reviewed - VTE Documentation of Mechanical Device: Graduated compression elastic hosiery Consult Discharge Plan - Plan Referrals: Claude Lott MD [Primary Care Provider] - 03/20/17 10:00 am
[2017-03-08 10:24] LABS: Albumin 3.1 g/dL (3.5-5.0); Albumin/Globulin Ratio 0.8 (1.1-2.2); Bilirubin,Total 0.5 mg/dL (0.2-1.2); Calcium 9.1 mg/dL (8.6-10.8); Globulin 3.7 g/dL (2.4-3.5); Potassium 4.2 mEq/L (3.5-4.5); Total Protein 6.8 g/dL (6.0-8.3)
[2017-03-08 11:31] VITALS: BP 139/94
--- NOTE | 2017-03-08 14:48 | Discharge Summary ---
Date of Encounter: 03/08/17 Time of Encounter: 14:46 - Discharge Diagnosis (1) Hypertensive emergency Priority: Primary Status: Acute (2) NSTEMI (non-ST elevated myocardial infarction) Priority: Secondary Status: Acute (3) Pneumonia Priority: Secondary Status: Acute Qualifiers: Pneumonia type: due to unspecified organism Laterality: right Lung location: lower lobe of lung Qualified Code(s): J18.1 - Lobar pneumonia, unspecified organism (4) COPD exacerbation Priority: Secondary Status: Acute (5) DVT prophylaxis Priority: Secondary Status: Acute (6) Alcoholism Priority: Secondary Status: Acute (7) STEVEN (acute kidney injury) Priority: Secondary Status: Acute - Discharge Medications Prescriptions: Albuterol Sulfate [Proventil Hfa] 6.7 gm IH QID #1 inh Albuterol Sulfate [Albuterol Inhaler] 2 puff IH QID #1 inhaler amLODIPine [Norvasc] 5 mg PO DAILY #30 tablet Furosemide [Lasix] 20 mg PO DAILY #30 tablet Levofloxacin [Levaquin] 500 mg PO DAILY #8 tablet Metoprolol [Lopressor] 25 mg PO BID #30 tablet Home Medications: Ibuprofen [Advil] 200 - 800 mg PO Q6H PRN 01/18/17 [History] Albuterol Sulfate [Albuterol Inhaler] 2 puff IH QID #1 inhaler 03/08/17 [Rx] Albuterol Sulfate [Proventil Hfa] 6.7 gm IH QID #1 inh 03/08/17 [Rx] Aspirin 325 mg PO DAILY tab 03/08/17 [Rx] Folic Acid 1 mg PO DAILY tab 03/08/17 [Rx] Furosemide [Lasix] 20 mg PO DAILY #30 tablet 03/08/17 [Rx] Levofloxacin [Levaquin] 500 mg PO DAILY #8 tablet 03/08/17 [Rx] Metoprolol [Lopressor] 25 mg PO BID #30 tablet 03/08/17 [Rx] Thiamine (B-1) [Vitamin B-1] 100 mg PO DAILY tab 03/08/17 [Rx] amLODIPine [Norvasc] 5 mg PO DAILY #30 tablet 03/08/17 [Rx] Allergies/Adverse Reactions: 3 Allergy/AdvReac Type Severity Reaction Status Date / Time No Known Allergies Allergy Verified 03/05/17 11:08 Date of admission: 03/05/17 18:55 Primary care physician: Claude Lott MD - Patient Status Disposition: Home, Self-Care Condition: Good Overall status at discharge: patient is progressing back to baseline - Discharge Instructions Follow Up With: Claude Lott MD [Primary Care Provider] - 03/20/17 10:00 am - Diet and Activity Activity: resume usual activities as tolerated Diet: advance to your usual diet, low fat, low cholesterol, low salt diet Hospital course: MMr. Puente is a 71 year old male with past medical history significant for hypertension presented with 10 day history of aggressively worsening shortness of breath without any significant cough fever wheezing or phlegm. He was treated OP for bronchitis with Keflex and inhaler without any significant improvement. As he came to ER his blood pressure was noted quite high. His troponin is sports 0.08 though he denies any chest pain. He denies any other complaining bloating syncope headache and neck pain visual changes chest pain abdominal pain nausea vomiting diarrhea dysuria urgency frequency have actually medicated hematemesis melena or any other concerns otherwise. He used to drink one pack every 2 days and he smokes 1 pack every day but he quits 10 days ago. He seems quite dyspneic as I seem to lay down flat he could not do it very well and become quite short of breath.Echocardiogram showed LV ejection fraction 25% severe MR global dysfunction and moderate pulmonary hypertension. Considering history of alcoholism Will maximize on Anibal inhibitors and try to keep afterload low and will add low-dose Lasix. Cardiology also offered LHC which he has declined and like to think about it as outpatient.. Blood pressures are stable now. He is on Lopressor and low dose Lasix. Once creatinine improves then ANIBAL inhibitor can be started. Patient has developed STEVEN due to overdiuresis and renal function needs to be followed. He was offered to stay for another day and until his kidney function improve so that we can maximize his medical treatment however patient refused to stay and threatened to leave AMA. He is requested to follow with his family physician and have BMP checked through his office and follow with cardiology in office as well. He will be given Levaquin and Ceftin for treatment for his pneumonia as well as thiamine and multivitamin and folic acid. He claims he has already quit drinking and counseling provided. - Time Spent with Patient Total time spent providing and/or coordinating discharge services: Greater than 30 minutes - Constitutional Vitals: Temp Pulse Resp BP Pulse Ox 97.7 F 84 16 139/94 98 03/08/17 11:29 03/08/17 11:32 03/08/17 11:29 03/08/17 11:29 03/08/17 11:29 General appearance: Present: mild distress, A&O X 3, pleasant, answers questions appropriately - Head Head exam: Present: atraumatic, normocephalic - Eye Eye exam: Present: PERRL, conjuntiva pink, sclera anicteric Pupils: Present: PERRL - Neck Neck exam general surgery: Present: supple, trachea midline. Absent: lymphadenopathy - Respiratory Respiratory exam: Present: CTAB. Absent: accessory muscle use, rales, rhonchi, wheezes - Cardiovascular Cardiovascular exam: Present: RRR, +S1, +S2. Absent: diastolic murmur, gallop, rubs, systolic murmur - GI/Abdominal GI/Abdominal exam: Present: normal bowel sounds, soft, no peritoneal signs. Absent: distended, tenderness - Extremities Exam Extremities exam: Present: warm, radial pulses palpable and symmetrical. Absent : calf tenderness, cyanotic, pedal edema - Neurological Exam Neurological exam: Present: CN II-XII intact, oriented X3, no focal deficits. Absent: pronater drift, facial droop, speech deficit - Skin Skin exam: Present: dry, intact - VTE Documentation of Mechanical Device: Graduated compression elastic hosiery
[2017-03-09] MEDS ORDERED: Levofloxacin 750 MG/150 ML 750 MG/150 ML BAG IVPB SCH (09:00)
--- NOTE | 2017-03-09 20:53 | Electrocardiograph Report ---
[place] [id number] Test Date: 2017-03-05 Pat Name: Brenden Puente Department: 105 Room: 2N13 Gender: M Mill [employer]: MARLENY : 1945 Requested By: Wayne Perez Order Number: [id number] Reading MD: Chucho Clements MD Measurements Intervals [place] Rate: 105 P: 45 [place]: 138 QRS: 2 QRSD: 94 T: 91 QT: 368 QTc: 429 Interpretive Statements SINUS TACHYCARDIA LEFT ATRIAL ENLARGEMENT LEFT VENTRICULAR HYPERTROPHY AND ST-T CHANGE Electronically Signed On 03-09-2017 20:52:27 EDT by Chucho Clements MD
== END 2017-03-08 15:02 | disposition home or self-care (01) | DRG 280 ==
LOC: 2NNU 10:41 → EMEROO 10:41 → 2NNU 16:07
PROVIDERS: ADMIT Internal Medicine; ATTEND Internal Medicine